=== PATIENT | female | born 1945 | race Caucasian/White ===

== ENCOUNTER → 2018-09-07 | Outpatient (CLI) | payer MEDICARE, OTHER | LOC: GMAM 15:18 | PROVIDERS: ATTEND Family Medicine | DX: E03.9 Hypothyroidism, unspecified (principal) ==

== ENCOUNTER → 2018-11-15 | Outpatient (CLI) | payer MEDICARE, OTHER | LOC: GMAM 10:19 | PROVIDERS: ATTEND Family Medicine | DX: E03.9 Hypothyroidism, unspecified (principal) ==

== ENCOUNTER 2018-12-07 05:46 | Day surgery (SDC) | payer MEDICARE, OTHER ==
[2018-12-07] MEDS ORDERED: PROPOFOL 200 MG/20 ML VIAL IV ONE (07:00)
[2018-12-07] MEDS ORDERED: LACTATED RINGERS 1,000 ML ONE (08:14)
[2018-12-07 13:49] VITALS: O2SAT 99
--- NOTE | 2018-12-07 13:52 | OP ---
DATE OF PROCEDURE: 12/07/18 PREPROCEDURE DIAGNOSIS: 1. Colorectal cancer screening. POSTPROCEDURE DIAGNOSIS: 1. Large, non-bleeding, internal hemorrhoids. 2. Diverticulosis in the sigmoid colon. 3. Fair bowel preparation. PROCEDURE: 1. Colonoscopy. SURGEON: John Sullivan MD COMPLICATIONS: No immediate complications. SEDATION: The patient was sedated via IV propofol by the Anesthesia Department. CONSENT: Prior to the procedure, risks, benefits and alternatives to the therapy were discussed with the patient. The risks included bleeding, infection, perforation and . The patient agreed to the procedure and signed a consent. PREPROCEDURE ANESTHESIA ASSESSMENT: An examination revealed no contraindication to sedation. Airway examination demonstrated a Mallampati class type 2, ASA grade assessment type 2. Throughout the procedure, the patient's blood pressure and additional vital signs were closely monitored. PROCEDURE: The patient was placed in the left lateral decubitus position and a rectal examination was performed. The rectal examination was within normal limits. The Olympus colonoscope was passed in the anus, advanced into the descending colon, transverse and the ascending colon, into the cecum as identified by the appendiceal orifice and the ileocecal valve. The scope was retracted and the mucosa was visualized. The entirety of the exam was performed under direct visualization. Retroflexion was performed in the rectum. Preparation quality was fair due to large amount of semiliquid stool. The withdrawal time was greater than 6 minutes. The patient tolerated the procedure well. FINDINGS: 1. Significant amount of semiliquid stool was found predominantly in the cecum, ascending and transverse colon. Aspiration and lavage with extensive amount of sterile water was performed, however, only fair visualization was achieved. 2. Mild diverticulosis was found in the sigmoid colon. 3. Large, non-bleeding, internal hemorrhoids. RECOMMENDATION: 1. Return the patient home. 2. Resume previous diet. 3. Repeat colonoscopy in the next year due to only fair bowel preparation. 4. Increase fiber intake on a daily basis. 5. Return to my office p.r.n. 6. Advise two-day bowel preparation prior to next colonoscopy. #[id number] MTDD
[2018-12-07 14:22] VITALS: BP 116/90; TEMP 97.2
== END 2018-12-07 14:15 | disposition home or self-care (01) ==
LOC: AMB 05:46
PROVIDERS: ATTEND Internal Medicine Gastroenterology
DX: Z12.11 Encounter for screening for malignant neoplasm of colon (principal); K57.30 Diverticulosis of large intestine without perforation or abscess without bleeding; K64.8 Other hemorrhoids; I25.10 Atherosclerotic heart disease of native coronary artery without angina pectoris; E11.9 Type 2 diabetes mellitus without complications; J44.9 Chronic obstructive pulmonary disease, unspecified; Z90.710 Acquired absence of both cervix and uterus; Z88.0 Allergy status to penicillin; Z88.5 Allergy status to narcotic agent; Z88.7 Allergy status to serum and vaccine; Z88.8 Allergy status to other drugs, medicaments and biological substances; Z79.899 Other long term (current) drug therapy
CPT/HCPCS: 00812; 45378; 82948; J3490; J7120

== ENCOUNTER → 2019-03-14 | Outpatient (CLI) | payer MEDICARE, OTHER | LOC: GMAM 11:37 | PROVIDERS: ATTEND Family Medicine | DX: E03.9 Hypothyroidism, unspecified (principal); E11.9 Type 2 diabetes mellitus without complications; E78.2 Mixed hyperlipidemia; I10 Essential (primary) hypertension ==

== ENCOUNTER → 2019-06-14 | Outpatient (CLI) | payer MEDICARE, OTHER | LOC: GMAM 12:13 | PROVIDERS: ATTEND Family Medicine | DX: E03.9 Hypothyroidism, unspecified (principal); E11.9 Type 2 diabetes mellitus without complications; I10 Essential (primary) hypertension ==

== ENCOUNTER → 2019-06-19 | Outpatient (CLI) | payer MEDICARE, OTHER | LOC: GMAM 11:56 | PROVIDERS: ATTEND Family Medicine | DX: E03.9 Hypothyroidism, unspecified (principal) ==

== ENCOUNTER → 2019-10-03 | Outpatient (CLI) | payer MEDICARE, OTHER | LOC: GMAM 10:22 | PROVIDERS: ATTEND Family Medicine | DX: E03.9 Hypothyroidism, unspecified (principal); E55.9 Vitamin D deficiency, unspecified; E11.9 Type 2 diabetes mellitus without complications; I10 Essential (primary) hypertension; E78.2 Mixed hyperlipidemia ==

== ENCOUNTER → 2019-10-26 | Outpatient (CLI) | payer MEDICARE, OTHER ==
--- NOTE | 2019-10-27 16:00 | MAM ---
EXAM DESCRIPTION: 3D Screening BILATERAL : Digital Mammography. CLINICAL HISTORY: 74 years Female ANNUAL SCREENING . No complaints. No personal history of breast cancer. Remote family history of breast cancer. Menarche age 18. Childbirth age 22. Hysterectomy age 26. HRT 5 or more years ago.. Lifetime risk of developing breast cancer (Tyrer-Cuzick model)(%): 3.8. COMPARISON: Baseline study at this facility. No prior reports available. TECHNIQUE: Bilateral CC and MLO projection full-field images, digital tomosynthesis mammographic technique. Bilateral digital 2-D full-field MLO images. CAD not available for tomosynthesis or 2-D images. FINDINGS: The breast parenchymal density pattern is: Scattered areas of fibroglandular density. No skin thickening or nipple retraction. Focal asymmetry in the posterior third, lower outer quadrant, right breast approximately 7 cm from the nipple at the 6:30-7:00 position. Large microcalcifications in the adjacent soft tissues. No focal, stellate mass or density, focal asymmetry , and no suspicious microcalcifications left breast. IMPRESSION: BI-RADS CATEGORY: 0 - INCOMPLETE- Need additional imaging evaluation. FOLLOW-UP: Recall for additional imaging: Full-field 2-D and tomosynthesis right breast LM projection. Targeted left breast ultrasound.. Written communication concerning the IMPRESSION and Follow-up, will be mailed to the patient and referring health care provider. Electronically signed by: Nicanor Whelan MD 10/27/2019 3:59 PM PLACEMENT ASSISTANT
== END ==
LOC: MAMMO 09:16
PROVIDERS: ATTEND Family Medicine
DX: Z12.31 Encounter for screening mammogram for malignant neoplasm of breast (principal)

== ENCOUNTER → 2019-12-04 | Outpatient (CLI) | payer MEDICARE, OTHER ==
--- NOTE | 2019-12-05 12:27 | MAM ---
EXAM DESCRIPTION: 3D Diagnostic, Bilateral (accession [id number]), Breast,Right (accession [id number]): Ultrasound CLINICAL HISTORY: 74 yearsFemaleInconclusive mammogram focal asymmetry right breast. No personal history of breast cancer. Remote family history of breast and ovarian cancer with findings of breast cancer gene. No personal genetic testing. Lifetime risk of developing breast cancer (Tyrer-Cuzick model)(%): 3.8. COMPARISON: Bilateral screening digital breast tomosynthesis October 2019. TECHNIQUE: Bilateral LM projection full-field images, digital tomosynthesis technique. Bilateral 2-D digital full-field images: LM and CC projections. CAD available for 2-D images.. Transcutaneous scanning of the right breast utilizing oquendo-scale and Doppler modes. Scanning performed by the needle board repairer ; observation by Dr. Whelan. FINDINGS: The breast parenchymal density pattern is: Scattered areas of fibroglandular density. No skin thickening or nipple retraction scattered solitary microcalcifications. Focal asymmetry 3:00 position 5 cm from the nipple. Second focal asymmetry 7:00 to 8:00 position, 6 cm from the nipple. Stable from the prior study. Ultrasound: Scanning of the medial mid left breast and the mid to posterior left breast lateral. Mostly fibroglandular elements interspersed with fatty elements, medially and laterally. No solid mass. No distinct cyst. No large calcifications. No overlying skin changes. IMPRESSION: Benign exam. BIRAD CATEGORY: 2 BENIGN FINDINGS. RECOMMENDATIONS: FOLLOW UP: Return to routine digital bilateral mammographic screening, one year interval from October 2019. Written communication explaining the IMPRESSION and follow-up, will be mailed to the patient and referring health care provider. The FINDINGS and the FOLLOW-UP plan were reviewed in person with the patient after the examination. According to the [employer], yearly mammograms are recommended starting at age 40 and continuing as long as a woman is in good health. Any breast change noted on a breast self-exam should be reported promptly to the patient's healthcare provider. Breast MRI is recommended for women with an approximately 20-25% or greater lifetime risk of breast cancer, including women with a strong family history of breast or ovarian cancer and women who have been treated for Hodgkin's disease. A negative mammographic report should not delay tissue diagnosis in patients with significant clinical history or physical findings. Extremely dense breast tissue limits the sensitivity of digital mammography. Electronically signed by: Nicanor Whealn MD 12/05/2019 12:[address] [facility]
== END ==
LOC: MAMMO 11-29 08:30
PROVIDERS: ATTEND Family Medicine
DX: R92.2 Inconclusive mammogram (principal)
CPT/HCPCS: 76641; 77066; G0279

== ENCOUNTER → 2020-04-08 | Outpatient (CLI) | payer MEDICARE, OTHER ==
--- NOTE | 2020-04-08 10:06 | RAD ---
EXAM DESCRIPTION: Hand,Left 3 Views CLINICAL HISTORY: 74 years Female, MASS OF SKIN COMPARISON: None. Findings: 3 views/radiographs Location: Left hand No acute fracture or dislocation. Small first CMC osteophytes. Scattered IP joint space narrowing. Soft tissues are unremarkable. IMPRESSION: No evidence of acute process in the left hand. Electronically signed by: Fritz Rousseau MD 04/08/2020 10:05 AM CDT
== END ==
LOC: RAD 09:10
PROVIDERS: ATTEND Orthopaedic Surgery
DX: R22.9 Localized swelling, mass and lump, unspecified (principal)

== ENCOUNTER → 2020-04-19 | Outpatient (CLI) | payer MEDICARE, OTHER ==
--- NOTE | 2020-04-19 10:56 | RAD ---
EXAM DESCRIPTION: Foot,Right 3 Views CLINICAL HISTORY: PAIN IN RIGHT FOOT COMPARISON: None Available. TECHNIQUE: AP, LATERAL, AND OBLIQUE FINDINGS: The visualized bones appear poorly mineralized. No acute fracture or dislocation. Mild osteoarthritis of the first metatarsophalangeal joint. The soft tissues appear grossly unremarkable. IMPRESSION: Osteopenia. Mild osteoarthritis of the first metatarsophalangeal joint. Electronically signed by: Susan Nolan MD 04/19/2020 10:55 AM CDT
--- NOTE | 2020-04-19 10:57 | RAD ---
EXAM DESCRIPTION: Foot,Left 3 Views CLINICAL HISTORY: PAIN IN LEFT FOOT COMPARISON: None Available. TECHNIQUE: AP, LATERAL, AND OBLIQUE FINDINGS: The visualized bones appear poorly mineralized. No acute fracture or dislocation. Minimal osteoarthritis of the first metatarsophalangeal joint. The soft tissues appear grossly unremarkable. IMPRESSION: Minimal osteoarthritis of the first metatarsophalangeal joint. Electronically signed by: Susan Nolan MD 04/19/2020 10:55 AM CDT
== END ==
LOC: RAD 08:54
PROVIDERS: ATTEND Orthopaedic Surgery
DX: M19.071 Primary osteoarthritis, right ankle and foot (principal); M85.871 Other specified disorders of bone density and structure, right ankle and foot; M19.072 Primary osteoarthritis, left ankle and foot

== ENCOUNTER → 2020-05-14 | Outpatient (CLI) | payer MEDICARE, OTHER | LOC: GMAM 14:47 | PROVIDERS: ATTEND Family Medicine | DX: E03.9 Hypothyroidism, unspecified (principal); E55.9 Vitamin D deficiency, unspecified; E11.9 Type 2 diabetes mellitus without complications; E78.2 Mixed hyperlipidemia; I10 Essential (primary) hypertension ==

== ENCOUNTER → 2020-08-12 | Outpatient (CLI) | payer MEDICARE, OTHER ==
--- NOTE | 2020-08-12 12:47 | MRI ---
EXAM DESCRIPTION: Lumbar Spine w/o Contrast CLINICAL HISTORY: RADICULOPATHY LUMBAR REGION COMPARISON: None. TECHNIQUE: Multiplanar, multisequence MRI of the lumbar spine was performed without contrast. FINDINGS: Lumbar vertebral body heights are maintained. Transitional anatomy. For the purposes of this exam, the intervertebral disc space on transaxial T2 image 7 of series 501 is arbitrarily considered L5-S1. A rudimentary disc space at S1 to seen with at least sacralization of the right and probably left transverse processes. Conus medullaris terminates at T12-L1 and is unremarkable. Visualized intra-abdominal retroperitoneal structures show no acute findings. L1-2 No significant findings. L2-3 No significant findings. L3-4 Disc desiccation and mild loss of disc space height. 2 mm broad-based annular disc bulging flattens the ventral surface of the thecal sac. Mild facet hypertrophic and degenerative changes and small facet joint effusions. No foraminal encroachment. L4-5 Mild facet hypertrophic and degenerative changes. Small facet joint effusions. No spinal canal stenosis or foraminal encroachment. L5-S1 Disc desiccation and moderate disc space narrowing more prominent posteriorly. Moderate bilateral facet hypertrophic and degenerative changes. Uncovering of the disc from anterolisthesis with 2 to 3 mm broad-based annular disc bulging asymmetric towards the left indents the ventral aspect of the thecal sac contacting the descending left S1 nerve root in the lateral recess. Moderate left lateral recess encroachment. At least mild left greater than right foraminal encroachment is seen. Increased T2 signal in the soft tissues around the facet joints left greater than right. Small facet joint effusions. S1-S2: Mild bilateral facet hypertrophic and degenerative changes are seen with mild left lateral recess encroachment. No foraminal encroachment. IMPRESSION: Transitional anatomy as described above with rudimentary S1-S2 dis. Recommend correlation with plain film x-rays as well as this exam. Surgery or intervention is planned. Moderate bilateral facet arthropathy at L5-S1 with moderate to severe disc disease and degenerative grade 1 anterolisthesis resulting in at least moderate left lateral recess encroachment with mild left greater than right foraminal encroachment. Increased T2 signal in the soft tissue around the L5-S1 facet joints suggest acute inflammation. Electronically signed by: Pavel Louis MD 08/12/2020 12:45 PM CDT
== END ==
LOC: MRI 09:03
PROVIDERS: ATTEND Family Medicine
DX: M47.27 Other spondylosis with radiculopathy, lumbosacral region (principal); M51.17 Intervertebral disc disorders with radiculopathy, lumbosacral region; M43.17 Spondylolisthesis, lumbosacral region; M79.9 Soft tissue disorder, unspecified

== ENCOUNTER → 2020-10-18 | Outpatient (CLI) | payer MEDICARE, OTHER | LOC: GMAM 10:44 | PROVIDERS: ATTEND Family Medicine | DX: E03.9 Hypothyroidism, unspecified (principal); E55.9 Vitamin D deficiency, unspecified; E11.40 Type 2 diabetes mellitus with diabetic neuropathy, unspecified; I10 Essential (primary) hypertension; E78.2 Mixed hyperlipidemia ==